=== PATIENT | female | born 1945 | race Caucasian/White ===

== ENCOUNTER 2016-11-03 09:52 | Outpatient (CLI) | payer MEDICARE ==
[2016-11-03 10:21] LABS: Anion Gap 14 mmol/L (10-20); BUN (Urea Nitrogen) 27 mg/dL (9.8-20.1); Calc. Creatinine Clearance 0 mL/min (70-130); Calcium 10.4 mg/dL (7.8-10.44); Carbon Dioxide 24 mmol/L (23-31); Chloride 111 mmol/L (98-107); Estimated GFR-MDRD 34; Glucose 118 mg/dL (80-115); Potassium 4.9 mmol/L (3.5-5.1); Sodium 144 mmol/L (136-145)
== END 2016-11-03 09:53 | disposition home or self-care (01) ==
LOC: BURLAB 09:52
PROVIDERS: ATTEND Internal Medicine Nephrology
DX: N18.3 Chronic kidney disease, stage 3 (moderate) (principal)
CPT/HCPCS: 36415; 80048

== ENCOUNTER 2020-03-14 13:57 | Emergency (ER) | payer MEDICARE ==
[2020-03-14 14:26] LABS: #Basophils 0.1 thou/uL (0.0-0.2); #Eosinphils 0.1 thou/uL (0.0-0.7); #Lymphocytes 3.6 thou/uL (1.20-3.40); #Monocytes 0.6 thou/uL (0.11-0.59); #Neutrophils 6.4 thou/uL (1.40-6.50); %Basophils 0.8 % (0.0-1.0); %Lymphocytes 33.4 % (21.0-51.0); %Monocytes 5.1 % (0.0-10.0); %Neutrophils 59.7 % (42.0-75.0); Hemoglobin 16.2 g/dL (12.0-16.0); Mean Corpuscular HGB CONC 31.8 g/dL (32.0-36.0); Mean Corpuscular Hemoglobin 29.5 pg (27.0-31.0); Mean Corpuscular Volume 92.8 fL (78.0-98.0); Mean Platelet Volume 10.1 fL (7.4-10.4); Platelet Count 202 thou/uL (130-400); RBC Distribution Width 13.6 % (11.5-14.5); White Blood Cell (WBC) Count 10.8 thou/uL (4.8-10.8)
[2020-03-14 14:43] LABS: ALT (SGPT) 22 U/L (8-55); AST (SGOT) 19 U/L (5-34); Albumin 4.5 g/dL (3.4-4.8); Alkaline Phosphatase 94 U/L (40-110); Anion Gap 19 mmol/L (10-20); BUN (Urea Nitrogen) 23 mg/dL (9.8-20.1); Bilirubin, Total 0.6 mg/dL (0.2-1.2); Calc. Creatinine Clearance 0 mL/min (70-130); Calcium 9.7 mg/dL (7.8-10.44); Carbon Dioxide 18 mmol/L (23-31); Chloride 110 mmol/L (98-107); Globulin 2.7 g/dL (2.4-3.5); Glucose 133 mg/dL (83-110); Potassium 4.2 mmol/L (3.5-5.1); Protein, Total 7.2 g/dL (5.8-8.1); Sodium 143 mmol/L (136-145)
[2020-03-14] MEDS ORDERED: Aspirin Chewable 81 MG TAB ONE (14:59)
--- NOTE | 2020-03-14 15:43 | RAD ---
PORTABLE CHEST: 03/14/20 An AP portable film at 1432 is compared with a 07/14/10 study. The heart is normal in size. There is some haziness around the right hilum, so there may be some mini mal infiltrative changes here. However, the patient is turned to the side slightly which also could a ccentuate this. Otherwise, the lungs are clear. Calcification is seen in the aortic arch. There are n o effusions. IMPRESSION: Slight right perihilar haziness which may or may not be significant. There certainly is no congestive change. Depending upon symptoms, a follow-up better centered PA film could be useful if she is not i mproving. POS: HOME
[2020-03-14] MEDS ORDERED: Ondansetron ODT 4 MG TAB ONE (18:21)
--- NOTE | 2020-03-14 20:33 | RAD ---
CHEST TWO VIEWS: 03/14/20 Comparison is made with a portable film done earlier today. The heart remains normal in size. The film is better positioned and shows no definite infiltrate arou nd the right hilum as earlier. I believe it was a positioning artifact. A tube is seen in the midline which I presumed to be an NG tube. The tip is probably in the vicinity of the proximal stomach. No e ffusions or vascular congestion was seen. IMPRESSION: Clear lungs. Tube positioning seems adequate. POS: HOME
== END 2020-03-14 18:18 | disposition home or self-care (01) ==
LOC: BURERS 13:57
DX: R07.9 Chest pain, unspecified (principal); R11.0 Nausea; M25.512 Pain in left shoulder; I10 Essential (primary) hypertension; F17.210 Nicotine dependence, cigarettes, uncomplicated
CPT/HCPCS: 71045; 71046; 80053; 83880; 84484; 85025; 93005; Q0162

== ENCOUNTER 2024-03-31 08:44 | Outpatient (CLI) | payer MEDICARE, OTHER | END 2024-03-31 08:45 | disposition home or self-care (01) | LOC: BURCT 08:44 | PROVIDERS: ATTEND Family Medicine | DX: I71.43 Infrarenal abdominal aortic aneurysm, without rupture (principal); R10.84 Generalized abdominal pain; R11.2 Nausea with vomiting, unspecified; N20.0 Calculus of kidney; N28.1 Cyst of kidney, acquired; I70.0 Atherosclerosis of aorta; J98.11 Atelectasis; K44.9 Diaphragmatic hernia without obstruction or gangrene; N28.9 Disorder of kidney and ureter, unspecified; K57.90 Diverticulosis of intestine, part unspecified, without perforation or abscess without bleeding; M47.819 Spondylosis without myelopathy or radiculopathy, site unspecified; M41.9 Scoliosis, unspecified; Z90.49 Acquired absence of other specified parts of digestive tract | CPT/HCPCS: 74176 ==